=== PATIENT | female | born 1980 | race African-American/Black ===

== ENCOUNTER 2018-02-07 08:49 | Inpatient (IN) | payer OTHER ==
[~2018-02-07 08:49] MED LIST: LIDOCAINE 1% PF 2 ML VIAL. ID; MORPHINE SULFATE 4 MG/ML DISP.SYRIN. IV; ONDANSETRON PF 4 MG/2 ML VIAL. IV; fentaNYL PF VIAL 100 MCG/2 ML VIAL IV
[2018-02-07] MEDS ORDERED: MIDAZOLAM HCL/PF 2 MG/2 ML VIAL. (09:43)
[2018-02-07] MEDS ORDERED: DEXAMETHASONE SOD PHOS 20 MG/5 ML VIAL. (09:43)
[2018-02-07] MEDS ORDERED: LIDOCAINE 2% PF Vial for OR 5 ML VIAL. (09:43)
[2018-02-07] MEDS ORDERED: ONDANSETRON PF 4 MG/2 ML VIAL. (09:43)
[2018-02-07] MEDS ORDERED: fentaNYL PF VIAL 100 MCG/2 ML VIAL ×2 (09:43→10:48)
[2018-02-07] MEDS ORDERED: PROPOFOL 20 ML IV (09:43)
[2018-02-07 09:44] LABS: ADD MAN DIFF? NO
[2018-02-07] MEDS ORDERED: ROCURONIUM 50 MG/5 ML VIAL. (09:44)
[2018-02-07] MEDS: IV RINGERS,LACTATED 1000ML 1,000 ML IV (09:44)
[2018-02-07 09:50] LABS: BASO % 1 % (0-3); EOS # 0.2 x10^3/uL (0.0-0.7); EOS % 6 % (0-3); HEMATOCRIT 40.1 % (36.0-47.0); HEMOGLOBIN 13.5 g/dL (12.0-15.5); LYMPH # 1.2 x10^3/uL (1.0-4.8); LYMPH % 34 % (24-48); MEAN CORPUSCULAR HEMOGLOBIN 30 pg (25-35); MEAN CORPUSCULAR HGB CONC 34 g/dL (31-37); MEAN CORPUSCULAR VOLUME 89 fL (79-100); MONO # 0.4 x10^3/uL (0.0-1.1); MONO % 11 % (0-9); NEUT # 1.7 x10^3uL (1.8-7.7); NEUT % 49 % (31-73); PLATELET COUNT 198 x10^3/uL (140-400); RED BLOOD COUNT 4.51 x10^6/uL (3.50-5.40); RED CELL DISTRIBUTION WIDTH 13.2 % (11.5-14.5); WHITE BLOOD COUNT 3.5 x10^3/uL (4.0-11.0)
[2018-02-07 10:17] LABS: NEG OBC UR NEG; POS OBC UR POS; U PREG PATIENT NEGATIVE (NEG)
[2018-02-07] MEDS ORDERED: KETOROLAC 30 MG/ML INJ FOR OR. INJ (10:46)
[2018-02-07] MEDS ORDERED: NEOSTIGMINE METHYLSULFATE 5 MG/5 ML SYRINGE. (10:47)
[2018-02-07] MEDS ORDERED: ePHEDrine PF IN SALINE 50 MG/5 ML DISP.SYRIN IV (10:47)
[2018-02-07] MEDS ORDERED: GLYCOPYRROLATE 1 MG/5 ML VIAL. (10:47)
[2018-02-07] MEDS: BUPIVACAINE-EPI 0.25%-1:200000 50 ML VIAL. (11:07)
[2018-02-07] MEDS ORDERED: SEVOFLURANE 61 TO 120 MINUTES. IH (11:15)
[2018-02-07] MEDS ORDERED: ceFAZolin 2GM PREMIX 2 GM/50 ML BAG IV (12:00)
[2018-02-07] MEDS ORDERED: ONDANSETRON PF 4 MG/2 ML VIAL. IV (12:30)
[2018-02-07] MEDS ORDERED: 0.9 % SODIUM CHLORIDE 10 ML DISP.SYRIN. IV (12:30)
[2018-02-07] MEDS ORDERED: KETOROLAC 30 MG/ML INJ. IV (12:30)
[2018-02-07] MEDS ORDERED: PROCHLORPERAZINE 10 MG/2 ML VIAL. IV (12:30)
[2018-02-07] MEDS ORDERED: diphenhydrAMINE HCL 25 MG CAPSULE PO (12:30)
[2018-02-07] MEDS ORDERED: DEXTROSE 50% 25 GM / 50ML DISP.SYRIN. IV (12:30)
[2018-02-07] MEDS ORDERED: diphenhydrAMINE 50 MG/ML VIAL IV (12:30)
[2018-02-07] MEDS ORDERED: NALOXONE 0.4 MG/ML VIAL. IV (12:30)
[2018-02-07] MEDS ORDERED: CALCIUM CARBONATE 500 MG TAB.CHEW PO (12:30)
[2018-02-07] MEDS: PROCHLORPERAZINE 10 MG/2 ML VIAL. IV (12:36)
[2018-02-07] MEDS: fentaNYL PF VIAL 100 MCG/2 ML VIAL IV ×2 (12:36→12:55)
[2018-02-07] MEDS ORDERED: IV RINGERS,LACTATED 1000ML 1,000 ML IV (14:00)
[2018-02-07] MEDS: oxyCODONE/APAP 5/325 1 TAB TABLET PO (19:51)
[2018-02-07] MEDS: ZOLPIDEM 5 MG TABLET. PO (21:47)
[2018-02-07] MEDS: GABAPENTIN 300 MG CAPSULE. PO (21:47)
[2018-02-08] MEDS: oxyCODONE/APAP 5/325 1 TAB TABLET PO ×3 (05:52→21:32)
[2018-02-08] MEDS: GABAPENTIN 300 MG CAPSULE. PO ×3 (05:53→21:32)
[2018-02-08 06:17] LABS: ADD MAN DIFF? NO
[2018-02-08 07:10] LABS: BASO % 0 % (0-3); EOS % 0 % (0-3); HEMATOCRIT 36.1 % (36.0-47.0); HEMOGLOBIN 12.1 g/dL (12.0-15.5); LYMPH # 1.4 x10^3/uL (1.0-4.8); LYMPH % 19 % (24-48); MEAN CORPUSCULAR HEMOGLOBIN 30 pg (25-35); MEAN CORPUSCULAR HGB CONC 34 g/dL (31-37); MEAN CORPUSCULAR VOLUME 88 fL (79-100); MONO # 0.7 x10^3/uL (0.0-1.1); MONO % 10 % (0-9); NEUT % 70 % (31-73); PLATELET COUNT 191 x10^3/uL (140-400); RED BLOOD COUNT 4.11 x10^6/uL (3.50-5.40); RED CELL DISTRIBUTION WIDTH 12.9 % (11.5-14.5); WHITE BLOOD COUNT 7.1 x10^3/uL (4.0-11.0)
[2018-02-09] MEDS: GABAPENTIN 300 MG CAPSULE. PO ×2 (06:37→14:00)
[2018-02-09] MEDS: oxyCODONE/APAP 5/325 1 TAB TABLET PO ×2 (08:14→12:15)
[2018-02-09] MEDS: SIMETHICONE 80 MG TAB.CHEW PO (08:20)
== END 2018-02-09 15:00 | disposition home or self-care (01) | DRG 743 ==
LOC: SURG 08:49 → 3 NORTH 12:17
PROC: 0UB90ZZ Excision of Uterus, Open Approach (ICD-10-PCS; principal; 2018-02-07 10:30)
DX: D25.9 Leiomyoma of uterus, unspecified (principal); N94.6 Dysmenorrhea, unspecified
CPT/HCPCS: 36415; 81025; 85025; 86850; 86900; 86901; 88305; A7015; C1781; J0690; J0780; J1100; J1885; J2250; J2405; J2704; J2710; J3010; J3490